=== PATIENT | female | born 1975 | race Caucasian/White ===

== ENCOUNTER 2022-05-31 20:33 | Emergency (ER) | payer MEDICAID ==
[2022-05-31] MEDS ORDERED: cefTRIAXone 2 GM in Sodium Chloride 0.9% 50 ML IV ONE (21:32)
[2022-05-31] MEDS ORDERED: cefTRIAXone 2 GM Vial IVPUSH ONE (21:36)
[2022-05-31 21:40] LABS: ESTIMATED GFR 107 mL/min (>60)
[2022-05-31] MEDS: Sodium Chloride 0.9% 10 ML Syringe FLUSH PRN ×2 (21:51→23:58)
[2022-05-31] MEDS ORDERED: Clindamycin in 0.9 % Sod Chlor 600 MG/50 ML BAG IV SCH (22:00)
[2022-05-31] MEDS ORDERED: Vancomycin 1 GM SDV IV SCH (22:00)
[2022-05-31] MEDS ORDERED: VANCOmycin 1.75 GM/350 ML 1.75 GM in Premix Bag 1 BAG IV ONE (22:15)
[2022-05-31] MEDS ORDERED: Iopamidol 755 Mg/ML 100 ML Bottle IV ONE (23:23)
== END 2022-06-01 01:57 | disposition home or self-care (01) ==
LOC: FB.ED 20:33
DX: T81.40XA Infection following a procedure, unspecified, initial encounter (principal); E11.9 Type 2 diabetes mellitus without complications; F17.210 Nicotine dependence, cigarettes, uncomplicated; E78.00 Pure hypercholesterolemia, unspecified; I10 Essential (primary) hypertension; J44.9 Chronic obstructive pulmonary disease, unspecified; K21.9 Gastro-esophageal reflux disease without esophagitis; E66.9 Obesity, unspecified; Z88.5 Allergy status to narcotic agent; Z88.0 Allergy status to penicillin; Z79.82 Long term (current) use of aspirin; Z79.4 Long term (current) use of insulin; Z79.899 Other long term (current) drug therapy; Z68.32 Body mass index [BMI] 32.0-32.9, adult
CPT/HCPCS: 36415; 73701; 80053; 83605; 85025; 86140; 87040; 96365; 96366; 96367; 96375; 99284; J0696; J3370; J3490; Q9967; 99282

== ENCOUNTER 2023-01-22 07:42 | Day surgery (SDC) | payer MEDICAID ==
[2023-01-22] MEDS ORDERED: Propofol 200 MG/20 ML SDV IV ONE (07:43)
[2023-01-22] MEDS ORDERED: Sodium Chloride 0.9% 10 ML Syringe FLUSH PRN (07:45)
[2023-01-22] MEDS ORDERED: Lactated Ringers 1,000 ML IV SCH (07:45)
== END 2023-01-22 10:48 | disposition home or self-care (01) ==
LOC: FB.SDS 07:42
PROVIDERS: ATTEND Surgery
DX: K52.9 Noninfective gastroenteritis and colitis, unspecified (principal); J45.909 Unspecified asthma, uncomplicated; E11.9 Type 2 diabetes mellitus without complications; I10 Essential (primary) hypertension; K21.9 Gastro-esophageal reflux disease without esophagitis; E78.00 Pure hypercholesterolemia, unspecified; F17.210 Nicotine dependence, cigarettes, uncomplicated; Z79.899 Other long term (current) drug therapy; Z79.84 Long term (current) use of oral hypoglycemic drugs; Z80.0 Family history of malignant neoplasm of digestive organs; Z79.2 Long term (current) use of antibiotics; Z79.4 Long term (current) use of insulin; Z90.49 Acquired absence of other specified parts of digestive tract
CPT/HCPCS: 00812; 82947; J2704; J7120

== ENCOUNTER 2023-06-27 16:20 | Emergency (ER) | payer MEDICAID ==
[2023-06-27 16:37] LABS: BASOPHILS ABSOLUTE AUTO 0.1 x10-3/uL (0.0-0.1); BASOPHILS PERCENT AUTO 0.9 % (0.2-1.5); EOSINOPHILS ABSOLUTE AUTO 0.2 x10-3/uL (0.0-0.8); EOSINOPHILS PERCENT AUTO 1.3 % (0.6-8.1); HEMATOCRIT 44.6 % (34.2-48.2); HEMOGLOBIN 14.8 g/dL (11.4-15.5); LYMPHOCYTES ABSOLUTE AUTO 5.8 x10-3/uL (1.0-4.4); LYMPHOCYTES PERCENT AUTO 45.4 % (18.4-52.1); MEAN CORPUSCULAR HEMOGLOBIN 31.5 pg (23.9-33.9); MEAN CORPUSCULAR HGB CONC 33.2 g/dL (31.9-34.8); MEAN PLATELET VOLUME 10.1 fL (7.1-12.4); MONOCYTES PERCENT AUTO 7.5 % (4.4-15.7); NEUTROPHILS ABSOLUTE AUTO 5.8 x10-3/uL (1.5-6.3); NEUTROPHILS PERCENT AUTO 44.9 % (30.8-76.2); PLATELET COUNT,PLT 302 x10(3)uL (151-488); RED CELL DISTRIBUTION WIDTH 14.4 % (12.3-16.5); WHITE BLOOD CELL COUNT,WBC 12.9 x10-3/uL (3.0-10.3)
[2023-06-27 16:39] LABS: BLOOD UREA NITROGEN,BUN 13 mg/dL (7-18); CALCIUM 8.4 mg/dL (8.6-10.2); CARBON DIOXIDE,CO2 18 mmol/L (21-32); CHLORIDE,CL 98 mmol/L (100-110); CREATININE 1.3 mg/dL (0.55-1.02); ESTIMATED GFR 51 mL/min (>60); GLUCOSE RANDOM 260 mg/dL (80-116); POTASSIUM,K 3.1 mmol/L (3.5-5.3); SODIUM,NA 135 mmol/L (135-145)
[2023-06-27 16:45] LABS: A/G RATIO 0.9; ALANINE AMINOTRANSFERASE,ALT 33 U/L (12-36); ALBUMIN 3.1 g/dL (3.5-5.2); ALKALINE PHOSPHATASE 90 IU/L (56-112); ASPARTATE AMNIOTRANSFERASE,AST 33 IU/L (5-25); BILIRUBIN TOTAL 0.2 mg/dL (0.1-1.3); PROTEIN TOTAL,TP 6.6 g/dL (6.0-8.0)
[2023-06-27 16:52] LABS: TROPONIN I 20.6 pg/mL (4.0-60.3)
[2023-06-27 17:02] LABS: INR 1.01 (1.00-1.24); PROTHROMBIN TIME 10.4 sec (9.0-11.1); PTT,PARTIAL THROMBOPLSTIN TIME 26.3 SECONDS (24.4-33.2)
[2023-06-27 17:11] LABS: BILIRUBIN,URINE NEGATIVE (NEGATIVE); GLUCOSE,URINE 100 mg/dL (NORMAL); KETONES,URINE NEGATIVE (NEGATIVE); LEUKOCYTE ESTERASE,URINE NEGATIVE (NEGATIVE); NITRITE,URINE NEGATIVE (NEGATIVE); OCCULT BLOOD,URINE MODERATE (NEGATIVE); PROTEIN,URINE 100 mg/dL (NEGATIVE); UROBILINOGEN,URINE NORMAL (NEGATIVE)
[2023-06-27 17:17] LABS: AMPHETAMINES SCREEN, URINE NEGATIVE (NEGATIVE); BARBITURATE SCREEN,URINE NEGATIVE (NEGATIVE); BENZODIAZEPINES SCREEN,URINE NEGATIVE (NEGATIVE); BUPRENORPHINE SCREEN,URINE NEGATIVE (NEGATIVE); METHADONE SCREEN, URINE NEGATIVE (NEGATIVE); METHAMPHETAMINE SCREEN, URINE NEGATIVE (NEGATIVE); OXYCODONE SCREEN,URINE NEGATIVE (NEGATIVE); PROPOXYPHENE SCREEN,URINE NEGATIVE (NEGATIVE); THC SCREEN,URINE NEGATIVE (NEGATIVE)
[2023-06-27 17:21] LABS: APPEARANCE,URINE SLIGHTLY CLOUDY (CLEAR); BACTERIA,URINE FEW (NS); COLOR,URINE YELLOW (YELLOW); HYALINE CASTS,URINE FEW (NS); SQUAMOUS EPITHELIAL CELLS,UR FEW (NS,R,O); WBC,URINE 0-5 (0-5)
== END 2023-06-27 17:27 ==
LOC: FB.ED 16:20
DX: I46.9 Cardiac arrest, cause unspecified (principal); E87.6 Hypokalemia; R74.01 Elevation of levels of liver transaminase levels; R56.9 Unspecified convulsions; E83.51 Hypocalcemia; E78.5 Hyperlipidemia, unspecified; E11.40 Type 2 diabetes mellitus with diabetic neuropathy, unspecified; E78.00 Pure hypercholesterolemia, unspecified; I10 Essential (primary) hypertension; E66.9 Obesity, unspecified; Z68.30 Body mass index [BMI] 30.0-30.9, adult; Z88.5 Allergy status to narcotic agent; Z88.0 Allergy status to penicillin; Z79.82 Long term (current) use of aspirin; Z79.899 Other long term (current) drug therapy
CPT/HCPCS: 36415; 71045; 80053; 80307; 81001; 82947; 83880; 84484; 85025; 85610; 85730; 93005; 99285

== ENCOUNTER 2024-10-07 20:46 | Emergency (ER) | payer MEDICAID ==
[2024-10-07] MEDS ORDERED: traMADol 50 MG Tab PO ONE (20:47)
== END 2024-10-07 21:34 | disposition home or self-care (01) ==
LOC: FB.ED 20:46
DX: S06.0X1A Concussion with loss of consciousness of 30 minutes or less, initial encounter (principal); I10 Essential (primary) hypertension; E78.00 Pure hypercholesterolemia, unspecified; K21.9 Gastro-esophageal reflux disease without esophagitis; J44.89 Other specified chronic obstructive pulmonary disease; E11.42 Type 2 diabetes mellitus with diabetic polyneuropathy; E66.9 Obesity, unspecified; Z88.0 Allergy status to penicillin; Z88.5 Allergy status to narcotic agent; Z79.4 Long term (current) use of insulin; Z79.51 Long term (current) use of inhaled steroids; Z79.82 Long term (current) use of aspirin; Z79.84 Long term (current) use of oral hypoglycemic drugs; Z79.899 Other long term (current) drug therapy; Z68.32 Body mass index [BMI] 32.0-32.9, adult; W00.0XXA Fall on same level due to ice and snow, initial encounter
CPT/HCPCS: 70450; 72125; 99284; A9270-GY